=== PATIENT | female | born 1950 | race Caucasian/White ===

== ENCOUNTER 2021-03-11 17:06 | Emergency (ER) | payer MEDICARE, SELFPAY ==
[2021-03-11 17:17] VITALS: BP 141/83; PULSE 112; RESP 16; TEMP 36.8; O2SAT 97
--- NOTE | 2021-03-11 17:31 | ED.DENTAL ---
HPI - Dental/Oral General Chief complaint: Dental/Oral Stated complaint: Tooth pain Time Seen by Provider: 03/11/21 17:31 Source: patient, family and RN notes reviewed Mode of arrival: ambulatory Limitations: no limitations History of Present Illness HPI Narrative: 71 year old female accompanied by son presents to express care with complaints of dental pain, abscess of gum, with tooth loose on right upper tooth #6. Patient is legally blind has retinitis pigmentosa son assists in caring for his mother. Son states that mother can't get into the dentist until end of March and she has been in throbbing pain for about a week now. He states that he has called several dental offices without getting anything sooner for his mother, list of area dentists given to son. Patient reports that she has been applying Oragel to her gum for pain. MD Complaint: tooth pain Location: Tooth # (6) Onset (ago): week(s) (1) Severity: moderate Severity scale (1-10): 6 Treatment prior to arrival: topical analgesic Related Data Home Medications Medication Instructions Recorded Confirmed empagliflozin [Jardiance] 10 mg PO BID 03/11/21 03/11/21 glipizide 5 mg PO BID 03/11/21 03/11/21 lisinopril-hydrochlorothiazide 20 tablet PO DAILY 03/11/21 03/11/21 metformin 1,000 mg PO BID 03/11/21 03/11/21 pravastatin 10 mg PO DAILY 03/11/21 03/11/21 Allergies Allergy/AdvReac Type Severity Reaction Status Date / Time No Known Allergies Allergy Verified 03/11/21 17:17 Review of Systems Review of Systems: CONSTITUTIONAL: Denies fever, chills, or sweats. EYES: Denies visual changes, redness, or discharge, is legally blind ENT: Denies rhinorrhea, congestion, sore throat, or otalgia.positive for swelling and noted abscess to gum at #6 tooth with dental pain and tooth noted to be loose CARDIOVASCULAR: Denies chest pain, palpitations, or edema. RESPIRATORY: Denies cough or dyspnea. GASTROINTESTINAL: Denies abdominal pain, nausea, vomiting, or diarrhea. GENITOURINARY: Denies dysuria or hematuria. SKIN: Denies rash or itching. MUSCULOSKELETAL: Denies back pain, joint pain, or myalgia. NEUROLOGIC: Denies headache, numbness, or weakness. PSYCHIATRIC: Denies anxiety or depression. All systems reviewed & are unremarkable except as noted in HPI and below PMFSH Past Medical History Medical History (Updated 03/13/21 @ 20:31 by Mary Kate Martinez NP) Diabetes Elevated cholesterol Hypertension Retinitis pigmentosa Surgical History Surgical History (Updated 03/13/21 @ 20:52 by Mary Kate Martinez NP) No pertinent past surgical history Family History Family History (Updated 03/13/21 @ 20:53 by Mary Kate Martinez NP) Other Family history non-contributory Social History Social History (Updated 03/13/21 @ 20:34 by Mary Kate Martinez NP) Smoking status: Never smoker Alcohol intake: unknown Substance use: unknown Living arrangements: with family Gender identity (if verbalized by the patient): Female Comments at time of signature agree with nursing documention of past medical, surgical, social, and family history.There is no family history pertinent to presenting complaint. Exam Narrative: GENERAL: Well-appearing, well-nourished, and in no acute distress. HEAD: Normocephalic, atraumatic. EYES: PERRLA and EOMI. ENT: Nares clear, no rhinorrhea or epistaxis. Mucous membranes moist.TM's normal with no lesions or exudates, no tonsil enlargement dental abscess noted to gum above #6 tooth with some redness of gum, noted decay to tooth with tooth loose. No difficulty with swallowing or with any breathing effort, no trismus noted, no Pedro angina NECK: Supple. No lymphadenopathy CHEST: Clear to auscultation. No respiratory distress.SAO2 97% on room air HEART: Regular rate and rhythm. No murmur heard. Normal peripheral pulses. ABDOMEN: Soft, nontender, nondistended, normal active bowel sounds. EXTREMITIES: Normal range of motion. No edema. SKIN: Warm, dry, no ra
== END 2021-03-11 17:47 | disposition home or self-care (01) ==
PROVIDERS: Emergency Provider Registered Nurse; PCP Anesthesiology
DX: K04.7 Periapical abscess without sinus (principal); K08.89 Other specified disorders of teeth and supporting structures; E11.9 Type 2 diabetes mellitus without complications; E78.00 Pure hypercholesterolemia, unspecified; I10 Essential (primary) hypertension
CPT/HCPCS: 99213; G0463